=== PATIENT | male | born 1970 | race Caucasian/White ===

== ENCOUNTER 2018-05-07 17:24 | Inpatient (IN) | payer OTHER ==
[~2018-05-07] VITALS: Ht 175.3 cm; Wt 227.0 kg
[~2018-05-07 17:24] MED LIST: GLIPIZIDE10 MG PO; GLUCOPHAGE1000 MG PO; LISINOPRIL40 MG PO; NOHOMEMEDS; PRAVASTATIN SOD20 MG PO
[2018-05-07] MEDS ORDERED: ASPIR-LOW81 MG PO (17:43)
[2018-05-07] MEDS ORDERED: ALOGLIPTIN25 MG PO (17:44)
[2018-05-07 18:05] LABS: BASOPHIL COUNT 0.2 K/uL (0-0.1); EOSINOPHIL (%) 2.3 % (0-5); EOSINOPHIL COUNT 0.4 K/uL (0-0.3); HEMOGLOBIN 14.3 G/DL (12.5-16.6); IMMATURE GRANULOCYTE (%) 0.7 % (0.0-0.7); LYMPHOCYTE COUNT 1.8 K/uL (1.0-2.8); MCH 30.5 PG (29.0-34.0); MCHC 33.3 G/DL (30.0-36.0); MCV 91.7 FL (86-99); NEUTROPHIL COUNT 13.1 K/uL (1.8-6.4); PLATELET COUNT 249 K/uL (156-360); RBC DIS.WIDTH-CV 13.6 % (11.8-14.6); RBC DIS.WIDTH-SD 45.8 % (39-53); RED BLOOD COUNT 4.69 M/uL (4.00-5.50); WHITE BLOOD COUNT 16.6 K/uL (4.1-10.2)
[2018-05-07 18:19] LABS: ALBUMIN 3.5 g/dL (3.2-4.8); CHLORIDE 102 mEq/L (99-109); POTASSIUM 4.5 mEq/L (3.7-5.4); SODIUM 138 mEq/L (136-147)
[2018-05-07 18:21] LABS: GLUCOSE 285 mg/dL (70-99)
[2018-05-07 18:22] LABS: TOTAL PROTEIN 7.3 g/dL (6.4-8.3)
[2018-05-07 18:23] LABS: TOTAL BILIRUBIN 0.7 mg/dL (0.0-1.0)
[2018-05-07 18:25] LABS: ALKALINE PHOSPHATASE 57 IU/L (3-129); CREATININE 0.8 mg/dL (0.6-1.3); GFR ESTIMATE (CALCULATED) > 59 mL/min/ (58.99-99999)
[2018-05-07 18:26] LABS: UREA NITROGEN (BUN) 11 mg/dL (9-23)
[2018-05-07 18:27] LABS: AST (GOT) 22 IU/L (2-34); DIRECT BILIRUBIN 0.3 mg/dL (0.0-0.3); TROP-I INTERPRETATION NEGATIVE; TROPONIN-I < 0.01 ng/mL (0.0-0.30)
[2018-05-07 18:28] LABS: ALT (GPT) 24 IU/L (3-49); LIPASE 28 U/L (1.0-51.0)
[2018-05-07 21:00] LABS: APPEARANCE CLEAR ((CLEAR)); BILIRUBIN NEGATIVE; BLOOD NEGATIVE; COLOR YELLOW ((YELLOW)); GLUCOSE (STRIP) 150; KETONES NEGATIVE; LEUKOCYTES NEGATIVE; NITRITE NEGATIVE; PROTEIN (STRIP) 30; SPECIFIC GRAVITY 1.021 (1.000-1.030); UCUL ADDED? NO; UROBILINOGEN 0.2 MG/DL (0.2-1.0)
[2018-05-08 03:25] VITALS: BP 127/54
[2018-05-08 07:41] VITALS: BP 110/52
[2018-05-08 08:47] LABS: HEMATOCRIT 38.2 % (38.0-50.0); MCH 30.1 PG (29.0-34.0); MCHC 32.2 G/DL (30.0-36.0); MCV 93.6 FL (86-99); PLATELET COUNT 200 K/uL (156-360); RBC DIS.WIDTH-CV 13.8 % (11.8-14.6); RBC DIS.WIDTH-SD 47.1 % (39-53); RED BLOOD COUNT 4.08 M/uL (4.00-5.50); WHITE BLOOD COUNT 12.3 K/uL (4.1-10.2)
[2018-05-08 09:12] LABS: HEMOGLOBIN 12.3 G/DL (12.5-16.6)
[2018-05-08 12:04] VITALS: BP 121/72
[2018-05-08 16:10] VITALS: BP 158/72
[2018-05-08 19:33] VITALS: BP 134/81
[2018-05-08 23:24] VITALS: BP 118/57
[2018-05-09 07:35] VITALS: BP 133/78
[2018-05-09 23:24] VITALS: BP 138/75
[2018-05-10 06:36] LABS: HEMATOCRIT 38.7 % (38.0-50.0); HEMOGLOBIN 12.3 G/DL (12.5-16.6); MCH 29.7 PG (29.0-34.0); MCHC 31.8 G/DL (30.0-36.0); MCV 93.5 FL (86-99); PLATELET COUNT 196 K/uL (156-360); RBC DIS.WIDTH-CV 13.6 % (11.8-14.6); RBC DIS.WIDTH-SD 46.5 % (39-53); RED BLOOD COUNT 4.14 M/uL (4.00-5.50); WHITE BLOOD COUNT 11.3 K/uL (4.1-10.2)
[2018-05-10 07:03] LABS: CHLORIDE 106 MEQ/L (99-109); CREATININE 0.6 MG/DL (0.6-1.3); GFR ESTIMATE (CALCULATED) > 59 mL/min/ (58.99-99999); GLUCOSE 162 mg/dL (70-99); POTASSIUM 3.9 MEQ/L (3.7-5.4); SODIUM 143 MEQ/L (136-147); UREA NITROGEN (BUN) 9 mg/dL (9-23)
[2018-05-10 07:45] VITALS: BP 144/65
[2018-05-10 15:57] VITALS: BP 175/65
[2018-05-10 23:08] VITALS: BP 126/62
[2018-05-11 08:12] VITALS: BP 135/67
[2018-05-11 16:18] VITALS: BP 138/65
[2018-05-11 23:34] VITALS: BP 138/83
[2018-05-12 07:48] VITALS: BP 118/58
[2018-05-12 15:21] VITALS: BP 152/84
[2018-05-13 00:10] VITALS: BP 154/72
[2018-05-13 07:51] VITALS: BP 130/81
[2018-05-13 16:01] VITALS: BP 161/72
[2018-05-13 21:19] VITALS: BP 127/76
[2018-05-13 23:29] VITALS: BP 130/63
[2018-05-14 09:02] VITALS: BP 131/80
== END 2018-05-14 17:11 | disposition home health service (06) | DRG 394 ==
LOC: EME 17:24 → 3EAST 23:55 → EDOF 23:55 → CANRESERV 05-08 00:33 → ENRESERV 05-08 00:33 → 3EAST 05-08 02:24
PROVIDERS: Emergency Medicine; Hospitalist; Surgery
DX: K43.6 Other and unspecified ventral hernia with obstruction, without gangrene (principal); R65.10 Systemic inflammatory response syndrome (SIRS) of non-infectious origin without acute organ dysfunction; E87.2 Acidosis; E11.65 Type 2 diabetes mellitus with hyperglycemia; E11.42 Type 2 diabetes mellitus with diabetic polyneuropathy; E66.01 Morbid (severe) obesity due to excess calories; Z68.45 Body mass index [BMI] 70 or greater, adult; R00.0 Tachycardia, unspecified; E78.5 Hyperlipidemia, unspecified; I10 Essential (primary) hypertension; Z75.1 Person awaiting admission to adequate facility elsewhere; Z87.891 Personal history of nicotine dependence; Z79.84 Long term (current) use of oral hypoglycemic drugs; Z79.82 Long term (current) use of aspirin; Z83.3 Family history of diabetes mellitus; Z82.49 Family history of ischemic heart disease and other diseases of the circulatory system
CPT/HCPCS: 74018; 74019; 80048; 80076; 81003; 82948; 83605; 83690; 83880; 84484; 85025; 85027; 93005; 94799; 99281; 99285; C1753; J1650; J1815; J2060; J2543; J7030; J7040; J7050; S0028